=== PATIENT | female | born 1945 | race Caucasian/White ===

== ENCOUNTER 2022-03-04 11:09 | Emergency (ER) | payer MEDICARE ==
[~2022-03-04] VITALS: Ht 165.1 cm; Wt 77.1 kg
[2022-03-04] MEDS ORDERED: DOXYCYCLINE HY100 MG PO (12:14)
[2022-03-04] MEDS ORDERED: MEDROL4 MG PO (12:14)
== END 2022-03-04 13:29 | disposition home or self-care (01) ==
LOC: FSED 11:13
DX: J44.9 Chronic obstructive pulmonary disease, unspecified (principal); R05.9 Cough, unspecified; I10 Essential (primary) hypertension; E11.9 Type 2 diabetes mellitus without complications; E78.5 Hyperlipidemia, unspecified
CPT/HCPCS: 71045; 83518; 87400; 99282